=== PATIENT | female | born 1945 | race Caucasian/White ===

== ENCOUNTER 2017-03-29 08:25 | Outpatient (CLI) | payer MEDICARE, OTHER | END 2017-03-29 08:26 | disposition home or self-care (01) | LOC: SLEEPLAB 08:25 | PROVIDERS: ATTEND Internal Medicine Critical Care Medicine | DX: G47.33 Obstructive sleep apnea (adult) (pediatric) (principal); R06.83 Snoring; G47.10 Hypersomnia, unspecified; E66.9 Obesity, unspecified | CPT/HCPCS: 95811 ==

== ENCOUNTER 2021-03-27 12:48 | Outpatient (CLI) | payer MEDICARE, OTHER | END 2021-03-27 12:49 | disposition home or self-care (01) | LOC: TBSIIMAG 12:48 | PROVIDERS: ATTEND Anesthesiology Pain Medicine | DX: M47.26 Other spondylosis with radiculopathy, lumbar region (principal); M48.062 Spinal stenosis, lumbar region with neurogenic claudication; M51.16 Intervertebral disc disorders with radiculopathy, lumbar region; M43.16 Spondylolisthesis, lumbar region; M48.07 Spinal stenosis, lumbosacral region; D73.89 Other diseases of spleen | CPT/HCPCS: 72100; 72148 ==

== ENCOUNTER 2021-04-09 08:03 | Outpatient (CLI) | payer MEDICARE, OTHER | END 2021-04-09 08:04 | disposition home or self-care (01) | LOC: BICMAMMO 08:03 | PROVIDERS: ATTEND Obstetrics & Gynecology | DX: Z12.31 Encounter for screening mammogram for malignant neoplasm of breast (principal) | CPT/HCPCS: 77063; 77067 ==

== ENCOUNTER 2021-05-01 10:49 | Outpatient (CLI) | payer MEDICARE, OTHER | END 2021-05-01 10:50 | disposition home or self-care (01) | LOC: BICCT 10:49 | PROVIDERS: ATTEND Anesthesiology Pain Medicine | DX: R19.00 Intra-abdominal and pelvic swelling, mass and lump, unspecified site (principal); D73.89 Other diseases of spleen; Z90.710 Acquired absence of both cervix and uterus | CPT/HCPCS: 74177; 82565 ==

== ENCOUNTER 2021-10-18 07:40 | Outpatient (CLI) | payer MEDICARE, OTHER | END 2021-10-18 07:41 | disposition home or self-care (01) | LOC: BICULT 07:40 | PROVIDERS: ATTEND Family Medicine | DX: D73.89 Other diseases of spleen (principal) | CPT/HCPCS: 76705 ==

== ENCOUNTER 2021-10-30 09:07 | Outpatient (CLI) | payer MEDICARE, OTHER | END 2021-10-30 09:08 | disposition home or self-care (01) | LOC: SCSMRI 09:07 | PROVIDERS: ATTEND Nurse Practitioner Family | DX: M47.24 Other spondylosis with radiculopathy, thoracic region (principal); D73.89 Other diseases of spleen | CPT/HCPCS: 72146 ==

== ENCOUNTER 2021-12-31 08:30 | Outpatient (CLI) | payer MEDICARE, OTHER ==
[2021-12-31] MEDS ORDERED: Iopamidol-370 76% 500 ML 1 ML ONE (10:09)
== END 2021-12-31 08:31 | disposition home or self-care (01) ==
LOC: BICCT 08:30
PROVIDERS: ATTEND Internal Medicine Hematology & Oncology
DX: D73.89 Other diseases of spleen (principal); R93.5 Abnormal findings on diagnostic imaging of other abdominal regions, including retroperitoneum; D53.9 Nutritional anemia, unspecified; D50.8 Other iron deficiency anemias; D72.818 Other decreased white blood cell count; D61.818 Other pancytopenia
CPT/HCPCS: 74170; 82565; Q9967

== ENCOUNTER 2022-05-03 07:53 | Outpatient (CLI) | payer MEDICARE | END 2022-05-03 07:54 | disposition home or self-care (01) | LOC: BICMAMMO 07:53 | PROVIDERS: ATTEND Family Medicine | DX: Z12.31 Encounter for screening mammogram for malignant neoplasm of breast (principal) | CPT/HCPCS: 77063; 77067 ==

== ENCOUNTER 2022-10-23 15:01 | Outpatient (CLI) | payer MEDICARE | END 2022-10-23 15:02 | disposition home or self-care (01) | LOC: BICMRI 15:01 | PROVIDERS: ATTEND Anesthesiology Pain Medicine | DX: M47.26 Other spondylosis with radiculopathy, lumbar region (principal); M51.16 Intervertebral disc disorders with radiculopathy, lumbar region | CPT/HCPCS: 72148 ==

== ENCOUNTER 2023-01-30 08:51 | Outpatient (CLI) | payer MEDICARE | END 2023-01-30 08:52 | disposition home or self-care (01) | LOC: BICMAMMO 08:51 | PROVIDERS: ATTEND Family Medicine | DX: Z13.820 Encounter for screening for osteoporosis (principal); M85.89 Other specified disorders of bone density and structure, multiple sites | CPT/HCPCS: 77080 ==

== ENCOUNTER 2023-05-17 22:58 | Inpatient (IN) | payer MEDICARE ==
[~2023-05-17 22:58] MED LIST: Iopamidol 370 76% 100 ML VIAL ONE
[2023-05-17 23:48] LABS: #Eosinphils 0.1 thou/uL (0.0-0.7); #Monocytes 0.1 thou/uL (0.11-0.59); #Neutrophils 2.8 thou/uL (1.40-6.50); %Basophils 0.3 % (0.0-1.0); %Eosinophils 2.2 % (0.0-10.0); %Lymphocytes 18.7 % (21.0-51.0); %Monocytes 3.8 % (0.0-10.0); %Neutrophils 74.5 % (42.0-75.0); Hematocrit 33.8 % (36.0-47.0); Mean Corpuscular HGB CONC 32.5 g/dL (32.0-36.0); Mean Platelet Volume 9.4 fL (7.4-10.4); Platelet Count 122 10x3/uL (130-400); RBC Distribution Width 15.1 % (11.5-14.5); Red Blood Cell (RBC) Count 3.93 mill/uL (4.20-5.40); White Blood Cell (WBC) Count 3.7 10x3/uL (4.8-10.8)
[2023-05-18 00:19] LABS: Troponin I Less than 0.010 ng/mL (< 0.028)
[2023-05-18 00:20] LABS: ALT (SGPT) 33 U/L (8-55); AST (SGOT) 37 U/L (5-34); Albumin 3.9 g/dL (3.4-4.8); Alkaline Phosphatase 70 U/L (40-110); Anion Gap 14 mmol/L (10-20); BUN (Urea Nitrogen) 21 mg/dL (9.8-20.1); Bilirubin, Total 0.3 mg/dL (0.2-1.2); Calc. Creatinine Clearance 0 mL/min (70-130); Calcium 8.7 mg/dL (7.8-10.44); Carbon Dioxide 23 mmol/L (23-31); Chloride 111 mmol/L (98-107); Estimated GFR 43; Globulin 2.4 g/dL (2.4-3.5); Glucose 100 mg/dL (83-110); Potassium 3.9 mmol/L (3.5-5.1); Protein, Total 6.3 g/dL (5.8-8.1); Sodium 144 mmol/L (136-145)
[2023-05-18 01:37] LABS: SARS-CoV-2 NAA Rapid Test Not Detected (NotDetected)
[2023-05-18] MEDS ORDERED: Furosemide 40 MG (4 mL) VIAL ONE ×2 (02:04→13:25)
[2023-05-18 02:43] VITALS: BMI 28.6
[2023-05-18] MEDS ORDERED: Acetaminophen 325 MG TAB PO PRN (02:54)
[2023-05-18] MEDS ORDERED: Ondansetron ODT 4 MG TAB PO PRN (02:54)
[2023-05-18] MEDS ORDERED: Ondansetron PF 4 MG/2 ML Vial IVP PRN (02:54)
[2023-05-18] MEDS ORDERED: Calcium Carbonate 500 MG ChewTAB PO PRN (04:25)
[2023-05-18] MEDS ORDERED: Apixaban 5 MG TAB ONE (08:41)
[2023-05-18] MEDS ORDERED: Apixaban 5 MG TAB PO SCH (09:00)
[2023-05-18] MEDS ORDERED: TREPROSTINIL INH SCH (13:00)
[2023-05-18] MEDS: Furosemide 40 MG (4 mL) VIAL SLOW IVP SCH ×2 (13:29→13:36)
[2023-05-18] MEDS ORDERED: RIOCIGUAT 2.5 MG PO SCH (15:00)
[2023-05-18] MEDS ORDERED: Potassium Chloride 20 MEQ TAB PO SCH (17:15)
[2023-05-18 17:20] VITALS: TEMP 98
[2023-05-18] MEDS ORDERED: Potassium Chloride 20 MEQ TAB ONE (17:46)
[2023-05-18 18:19] VITALS: BP 127/58
[2023-05-18] MEDS ORDERED: Atorvastatin Calcium 40 MG TAB PO SCH ×2 (21:00)
[2023-05-18] MEDS ORDERED: Sertraline 100 MG TAB PO SCH ×2 (21:00)
[2023-05-18] MEDS ORDERED: QUEtiapine 100 MG TAB PO SCH (21:00)
[2023-05-18] MEDS ORDERED: Macitentan [Opsumit] 10 MG Tablet PO SCH (21:00)
[2023-05-18] MEDS ORDERED: Prenatal Vitamin 1 TAB PO SCH (21:00)
[2023-05-19] MEDS ORDERED: Gabapentin 300 MG CAP PO SCH (09:00)
== END 2023-05-18 18:53 | disposition home or self-care (01) | DRG 291 ==
LOC: ERS 22:58 → ERHOLD 05-18 02:20
PROVIDERS: ADMIT Student in an Organized Health Care Education/Training Program; ATTEND Nurse Practitioner Family
DX: I50.33 Acute on chronic diastolic (congestive) heart failure (principal); J96.01 Acute respiratory failure with hypoxia; D61.818 Other pancytopenia; N17.9 Acute kidney failure, unspecified; I27.20 Pulmonary hypertension, unspecified; Z86.711 Personal history of pulmonary embolism; Z11.52 Encounter for screening for COVID-19; E78.5 Hyperlipidemia, unspecified; Z79.01 Long term (current) use of anticoagulants; Z79.899 Other long term (current) drug therapy; Z98.890 Other specified postprocedural states; Z90.710 Acquired absence of both cervix and uterus
CPT/HCPCS: 71045; 71275; 80053; 83880; 84484; 85025; 85379; 93005; 93306; 96374; J0665; J1100; J1940; J2001; Q9967

== ENCOUNTER 2023-05-19 10:48 | Outpatient (CLI) | payer MEDICARE | END 2023-05-19 10:49 | disposition home or self-care (01) | LOC: BICMAMMO 10:48 | PROVIDERS: ATTEND Family Medicine | DX: Z12.31 Encounter for screening mammogram for malignant neoplasm of breast (principal) | CPT/HCPCS: 77063; 77067 ==

== ENCOUNTER 2024-12-23 08:53 | Outpatient (CLI) | payer MEDICARE, OTHER | END 2024-12-23 08:54 | disposition home or self-care (01) | LOC: BICMAMMO 08:53 | PROVIDERS: ATTEND Family Medicine | DX: Z12.31 Encounter for screening mammogram for malignant neoplasm of breast (principal) | CPT/HCPCS: 77063; 77067 ==